=== PATIENT | female | born 1995 | race African-American/Black ===

== ENCOUNTER 2017-09-03 18:12 | Day surgery (SDC) | payer OTHER ==
[2017-09-03 18:48] VITALS: BP 121/70; TEMP 98.1; BMI 20.1
--- NOTE | 2017-09-03 19:36 | PDOC.LDHP ---
Labor and Delivery H&P Chief complaint: abdominal pain HPI: This is a 22 y/o @ 24.1 WGA by LMP c/w 17.3 wk sono who presents complaining of abdominal pain that has been going on for the past two days. She describes it as a cramping type abdominal pain that is worse when she is up moving around at work. The patient also describes less movement over the past two days as well. She denies any fevers, chills, loss of fluid, vaginal discharge, vaginal bleeding, dysuria, but does reports increased urinary frequency. Current gestational age (weeks): 24 (1 day) Due date: 12/23/17 Dating criteria: last menstrual period Grav: 4 Para: 1 (1021) OB History Details: two first trimester SAB, 1 term Current complications: none, other (Poor pre-marcelina care due to issues with her insurance) Abnormal US findings: No (has not gotten anatomy scan) Current medications: pre- vitamins Previous surgical history: dilation and curettage Social history: none - Physical Exam Vital signs reviewed and normal: yes General: NAD Heart: RRR Lungs: CTAB Abdomen: gravid Extremeties: no edema FHT: category 1, variability present Ball contractions every: none - OB Labs Blood type: O RH: negative Antibody Screen: negative HIV: negative RPR: negative HEPSAg: negative Rubella: immune - Assessment 22 y/o @ 24.1 WGA presents for cramping abdominal pain. - Plan -: Will rule out infectious causes of the cramping pain -Urinalysis -VP3 (patient has had trich in past) -GC/CT (patient had chlamydia in her past and has not been tested in this ) -Encourage PO hydration -NST -Anatomy US due to poor care and with patient being Rh negative <Leisa Gamez - Last Filed: 09/03/17 20:14> <Antonio Stokes - Last Filed: 09/03/17 20:29> Allergies/Adverse Reactions: Allergies Allergy/AdvReac Type Severity Reaction Status Date / Time No Known Allergies Allergy Verified 01/12/17 10:11 Attending Addendum - Attending Addendum Date/Time: 09/03/172028 I personally evaluated the patient and discussed the management with Dr. Gamez. I agree with the History, Examination, Assessment and Plan documented above with any addition or exceptions noted below. Cat 1 strip. Await UA. VP3 as not done yet in . Discharge if workup reassuring. <Antonio Stokes - Last Filed: 09/03/17 20:29>
[2017-09-03 20:47] LABS: Bilirubin Negative (Negative); Blood, Urine Negative (Negative); Clarity CLEAR (Clear); Glucose, Urine (Dipstick) Negative (Negative); Leukocyte Moderate (Negative); Nitrite Negative (Negative); Protein, Urine (Dipstick) Negative (Neg-Trace); Specific Gravity, Urine 1.011 (1.002-1.036); Urobilinogen 0.2 mg/dL (0.2-1.0)
[2017-09-03 20:49] LABS: Bacteria/HPF 1+ HPF (None Seen); Hyaline Casts/LPF 0-3 HYALINE CAST LPF (0-3 Hyaline); Pathc Cast-AUWi Flag 0.13 (0-2.49); RBC/HPF 0-3 HPF (0-3); Squamous Epithelial 0-3 HPF (0-3)
--- NOTE | 2017-09-03 21:16 | ULT ---
OB ULTRASOUND: History: Abdominal cramping, limited care. FINDINGS: There is a single live intrauterine gestation seen with measurements corresponding to an estimated ge stational age of 23 weeks 5 days with an CARLITOS of 7-10-18. Estimated weight is 544 grams (1 lbs. 3 oz). measurements are as follows: BPD 5.19 cm 21 weeks 5 days HC 20.57 cm 22 weeks 5 days AC 17.49 cm 22 weeks 6 days FL 4.08 cm 23 weeks 2 days The heart rate measures 136 beats/minute. The placenta is posterior without evidence of placent a previa. Amniotic fluid is adequate. A three vessel cord, cord insertion, kidneys, bladder, st omach, four chamber heart, stomach, spine, lips/nose were visualized. No definite anomalies are seen. The cervical length measures 4.12 cm. IMPRESSION: Single live IUP of 22 weeks 5 days estimated gestational age and CARLITOS at 7-10-18. POS: [facility]
[2017-09-04] MEDS ORDERED: FLU VACC QS2017-18 36 mo. & older 0.5 ML SYRINGE IM ONE (09:00)
== END 2017-09-03 22:00 | disposition home or self-care (01) ==
LOC: L&D/OP 18:12
PROVIDERS: ATTEND Family Medicine
DX: O99.89 Other specified diseases and conditions complicating pregnancy, childbirth and the puerperium (principal); R10.9 Unspecified abdominal pain; O09.32 Supervision of pregnancy with insufficient antenatal care, second trimester; Z3A.24 24 weeks gestation of pregnancy; Z79.899 Other long term (current) drug therapy; Z98.890 Other specified postprocedural states
CPT/HCPCS: 76805; 81001; 87086; 87480; 87491; 87510; 87591; 87660

== ENCOUNTER 2018-10-31 13:30 | Emergency (ER) | payer MEDICAID | END 2018-10-31 15:03 | disposition home or self-care (01) | LOC: ERS 13:30 | DX: J06.9 Acute upper respiratory infection, unspecified (principal); E05.90 Thyrotoxicosis, unspecified without thyrotoxic crisis or storm; F31.9 Bipolar disorder, unspecified; F90.9 Attention-deficit hyperactivity disorder, unspecified type; F17.210 Nicotine dependence, cigarettes, uncomplicated; Z79.899 Other long term (current) drug therapy | CPT/HCPCS: 99283 ==

== ENCOUNTER 2019-06-30 10:44 | Emergency (ER) | payer OTHER, SELFPAY ==
[2019-06-30 11:42] LABS: Bilirubin Negative (Negative); Blood, Urine 3+ (Negative); Clarity Extra Turbid (Clear); Glucose, Urine (Dipstick) Normal (Negative); Leukocyte 250 Leu/uL (Negative); Nitrite 2+ (Negative); Protein, Urine (Dipstick) 50 mg/dL (Neg-Trace); RBC/HPF Greater than 50 HPF (0-3); Urobilinogen Normal mg/dL (Less than 2)
[2019-06-30 11:49] LABS: Bacteria/HPF 4+ HPF (None Seen); WBC/HPF 21-50 HPF (0-3)
[2019-06-30 11:50] LABS: Sperm/HPF 1+ HPF (None Seen)
== END 2019-06-30 12:55 | disposition home or self-care (01) ==
LOC: ERS 10:44
DX: O20.0 Threatened abortion (principal); O23.41 Unspecified infection of urinary tract in pregnancy, first trimester; O99.341 Other mental disorders complicating pregnancy, first trimester; F41.9 Anxiety disorder, unspecified; F31.9 Bipolar disorder, unspecified; F90.9 Attention-deficit hyperactivity disorder, unspecified type; O99.281 Endocrine, nutritional and metabolic diseases complicating pregnancy, first trimester; E05.90 Thyrotoxicosis, unspecified without thyrotoxic crisis or storm; O99.331 Smoking (tobacco) complicating pregnancy, first trimester; F17.210 Nicotine dependence, cigarettes, uncomplicated; Z3A.13 13 weeks gestation of pregnancy
CPT/HCPCS: 81003; 81015; 87077; 87086; 87186; 90384; 96372; 99284

== ENCOUNTER 2019-07-23 17:59 | Emergency (ER) | payer OTHER ==
[2019-07-23 19:25] LABS: #Lymphocytes 1.7 thou/uL (1.20-3.40); #Monocytes 0.5 thou/uL (0.11-0.59); %Basophils 0.4 % (0.0-1.0); %Eosinophils 0.1 % (0.0-10.0); %Lymphocytes 13.7 % (21.0-51.0); %Monocytes 3.8 % (0.0-10.0); %Neutrophils 82.1 % (42.0-75.0); Hemoglobin 13.2 g/dL (12.0-16.0); Mean Corpuscular HGB CONC 33.5 g/dL (32.0-36.0); Mean Corpuscular Hemoglobin 28.4 pg (27.0-31.0); Mean Corpuscular Volume 84.7 fL (78.0-98.0); Mean Platelet Volume 7.4 fL (7.4-10.4); Platelet Count 298 thou/uL (130-400); RBC Distribution Width 14.8 % (11.5-14.5); Red Blood Cell (RBC) Count 4.66 mill/uL (4.20-5.40); White Blood Cell (WBC) Count 12.1 thou/uL (4.8-10.8)
[2019-07-23 19:40] LABS: Bilirubin Negative (Negative); Blood, Urine Negative (Negative); Clarity Turbid (Clear); Glucose, Urine (Dipstick) Normal (Negative); Leukocyte 500 Leu/uL (Negative); Nitrite Negative (Negative); Protein, Urine (Dipstick) 10 mg/dL (Neg-Trace); Urobilinogen Normal mg/dL (Less than 2); WBC/HPF Greater than 50 HPF (0-3)
[2019-07-23 19:45] LABS: Bacteria/HPF Rare-Few HPF (None Seen)
[2019-07-23 19:48] LABS: ALT (SGPT) 11 U/L (8-55); AST (SGOT) 15 U/L (5-34); Albumin 3.9 g/dL (3.5-5.0); Alkaline Phosphatase 75 U/L (40-110); Anion Gap 13 mmol/L (10-20); BUN (Urea Nitrogen) 10 mg/dL (7.0-18.7); Bilirubin, Total 0.4 mg/dL (0.2-1.2); Calc. Creatinine Clearance 0 mL/min (70-130); Carbon Dioxide 23 mmol/L (22-29); Chloride 102 mmol/L (98-107); Estimated GFR-MDRD Greater than 90; Globulin 3.6 g/dL (2.4-3.5); Glucose 75 mg/dL (70-105); Lipase 15 U/L (8-78); Protein, Total 7.5 g/dL (6.0-8.3); Sodium 134 mmol/L (136-145)
== END 2019-07-23 20:43 ==
LOC: EEVIPCON 17:59 → ERS 17:59
DX: O99.612 Diseases of the digestive system complicating pregnancy, second trimester (principal); K92.0 Hematemesis; O99.282 Endocrine, nutritional and metabolic diseases complicating pregnancy, second trimester; O99.342 Other mental disorders complicating pregnancy, second trimester; F31.9 Bipolar disorder, unspecified; F90.9 Attention-deficit hyperactivity disorder, unspecified type; O99.332 Smoking (tobacco) complicating pregnancy, second trimester; F17.210 Nicotine dependence, cigarettes, uncomplicated; Z3A.19 19 weeks gestation of pregnancy
CPT/HCPCS: 36415; 80053; 81003; 81015; 83690; 85025

== ENCOUNTER 2019-11-12 13:10 | Emergency (ER) | payer OTHER | END 2019-11-12 14:09 | disposition home or self-care (01) | LOC: ERS 13:10 | DX: R05 Cough (principal); E03.9 Hypothyroidism, unspecified; F31.9 Bipolar disorder, unspecified; F90.9 Attention-deficit hyperactivity disorder, unspecified type; Z79.899 Other long term (current) drug therapy | CPT/HCPCS: 99283 ==

== ENCOUNTER → 2019-11-13 | Day surgery (SDC) | payer OTHER ==
[~2019-11-13] MED LIST: Acetaminophen 500 MG TAB PO SCH; hydrALAZINE 20 MG/ML VIAL SLOW IVP PRN
--- NOTE | 2019-11-13 11:58 | PDOC.FPROB ---
FMR OB H&P: HPI - History of Present Illness Chief Complaint: elevated BP at [facility] Indentification: 24yo at 35.1 by 17w US History of Present Illness: Pt presents from [facility] after SBP of 141 and 146 15 min apart. She also reports intermittent BELLE and new onset productive cough x3 days. She has positive ill contact with daughter having similar sx. She otherwise denies vision changes, abd pain, VD, VB, LOF, poor movement, n/v/d/c, rhinorrhea, sneezing, fever. She has no hx of PIH in prior pregnancies. Primary Care Physician: [facility]- Lou Junior MD FMR OB H&P: Current - Care : 3 Para: 2000 Gestational age: 35.1w Due date: 12/17/19 Dating Criteria: 17w US - OB Labs Blood type: O RH: negative Antibody Screen: positive (AntiD Ab) HIV: negative RPR: negative HepBsAg: negative Rubella: immune Urine drug screen: negative Gonorrhea: negative Chlamydia: negative Pap Smear: ASCUS, HPV16+ 1 hour gtt: 81 GBS: unknown H&H: 12.0/35.5- 1T, 9.3/29.0- 3T (09/2019) Additional labs: TSH: 0.443, TPO Ab high at 151, Thyroglobulin wnl UDS neg - Anatomy Survey Anatomy survey: Normal anatomic survey, [place] 13% - Additional Ultrasound Additional: Follows with Dr. Roney Gregorio MD, for MFM, US on 10/27: BPP 8/8, cephalic presentation, YARIEL 14 FMR OB H&P: History - Past Medical History PMH: Hypothyroidism Tobacco Abuse in Cannabis Use in - OB History OB History: 1st - Term 2nd - Term IUFD, - FRAMING AND HANGING History FRAMING AND HANGING History: ASCUS, HPV16+ papsmear in , needs colpo 6wk PP - Social History Social History: Reports daily tobacco use up until 1 month ago, still has an occasional cigarette, denies alcohol use and drug use. FMR OB H&P: Medications - Current Home Medications: Medication Instructions Recorded Confirmed Type Vitamin 1 tablet PO DAILY #30 tablet 01/15/17 09/03/17 Rx Ferrous Sulfate/Vit C/Folic AC 1 tablet PO BID #60 tablet.er 11/13/19 Rx [Folitab 500 Caplet] Allergies/Adverse Reactions: Allergies Allergy/AdvReac Type Severity Reaction Status Date / Time No Known Allergies Allergy Verified 11/13/19 13:23 FMR OB H&P: ROS - Review of Systems General: denies: fever/chills, weight/appetite/sleep changes, night sweats, fatigue, recent trauma Eyes: denies: eye pain, vision changes, double vision, scotomas, floaters ENT: denies: nasal congestion, rhinorrhea, frequent nose bleed, sinus pain/ pressure, ear pain, sore throat Cardiovascular: denies: chest pain, palpitation, edema, orthopnea Respiratory: reports: cough, congestion, shortness of breath. denies: exercise intolerance Gastrointestinal: denies: abdominal pain, indigestion, bloating, cramping, nausea, vomiting, diarrhea, constipation, bright red blood, dark black tarry stools Genitourinary (Female): denies: incontinence, dysuria, hematuria, polyuria, hesitancy, vaginal discharge, vaginal bleeding, vaginal pressure Musculoskeletal: denies: pain, stiffness, tenderness Neurologic: denies: syncope, weakness Integumentary: denies: itching, rash FMR OB H&P: Vital Signs - Maternal Vital signs: BP 133/88 - Heart Tones Baseline: 130 Variability: moderate Acceleration: present Deceleration: absent Category: category 1 [place] contractions every: none FMR OB H&P: Physical Exam - Physical Exam General: NAD, awake, alert and oriented HEENT: normocephalic and atraumatic, EOMI, MMM, oropharynx clear Neck: no LAD Heart: RRR, normal S1/S2, no murmurs/rubs/gallops, pulses present General: CTAB, no respiratory distress, good air movement Deviation from normal: wasn't able to take big deep breath Abdomen: soft, gravid Musculoskeletal: pulses present Neurological: no focal deficit Skin: no rash FMR OB H&P: A/P - Problem List (1) Elevated blood pressure complicating , antepartum Current Visit: No Status: Acute Code(s): O13.9 - GESTATIONAL HTN W/O SIGNIFICANT PROTEINURIA, UNSP TRIMESTER Comment: remains normotensive. monitor post . (2) Third trimester at less than 36 weeks Current Visit: No Status: Acute Code(s): Z33.1 - STATE, INCIDENTAL Comment: 34.6wks by LMP c/w 11 wk sono- cont PNV & plan of care. Disposition: Pt is a 24 yo at 35.1 wks, dated by 17 wk sono, who presents from [facility] with elevated BP's: # Elevated BP's - CBC and CMP reassuring, pending Protein:Creatinine ratio - monitor blood pressures for 4 hours - will need BP cuff for home if discharged # Term IUP - monitor FHT's - GBS swab today, 11/13/19, at [facility] # Anemia of -3T Hgb 9, today 8.2 -start Fe and Vit C supplement # Hypothyroidism -TSH wnl initially, repeat pending # Hx of Term IUFD -plan for IOL at 37-38wk per MFM # Hx of Marijuana Use -UDS at delivery Dispo: monitor for 4 hours, Pre-E/PIH work up pending Discussion: Date/Time: 11/13/19 4035 This H&P was discussed with Dr. Liu and Dr. Monroe who agree with the above documentation and plan. Addendum - Attending - Attending Attestation Date/Time: 11/14/19 0636 I personally evaluated the patient and discussed the management with Dr. Hutchins I agree with the History, Examination, Assessment and Plan documented above with any addition or exceptions noted below. work up was negative. pt stable for discharge. counseled to take iron/vit c for anemia of . Covid 19 testing still pending. PT discharged with strict isolation precautions.
[2019-11-13 13:27] LABS: #Eosinphils 0.1 thou/uL (0.0-0.7); #Lymphocytes 1.5 thou/uL (1.20-3.40); #Monocytes 0.7 thou/uL (0.11-0.59); #Neutrophils 9.3 thou/uL (1.40-6.50); %Basophils 0.1 % (0.0-1.0); %Eosinophils 0.7 % (0.0-10.0); %Lymphocytes 13.1 % (21.0-51.0); %Monocytes 6.1 % (0.0-10.0); Hemoglobin 8.3 g/dL (12.0-16.0); Mean Corpuscular HGB CONC 32.9 g/dL (32.0-36.0); Mean Corpuscular Hemoglobin 26.3 pg (27.0-31.0); Mean Platelet Volume 7.3 fL (7.4-10.4); Platelet Count 208 thou/uL (130-400); RBC Distribution Width 13.5 % (11.5-14.5); Red Blood Cell (RBC) Count 3.14 mill/uL (4.20-5.40); White Blood Cell (WBC) Count 11.6 thou/uL (4.8-10.8)
[2019-11-13 13:48] LABS: ALT (SGPT) Less than 7 U/L (8-55); AST (SGOT) 14 U/L (5-34); Albumin 3.1 g/dL (3.5-5.0); Alkaline Phosphatase 116 U/L (40-110); Anion Gap 12 mmol/L (10-20); BUN (Urea Nitrogen) 5 mg/dL (7.0-18.7); Calc. Creatinine Clearance 0 mL/min (70-130); Calcium 8.1 mg/dL (7.8-10.44); Carbon Dioxide 21 mmol/L (22-29); Chloride 108 mmol/L (98-107); Estimated GFR-MDRD Greater than 90; Glucose 74 mg/dL (70-105); Potassium 3.6 mmol/L (3.5-5.1); Protein, Total 6.1 g/dL (6.0-8.3); Sodium 137 mmol/L (136-145)
[2019-11-13 14:03] LABS: Bilirubin, Total 0.2 mg/dL (0.2-1.2)
[2019-11-13 14:15] VITALS: TEMP 98.2
[2019-11-13 16:28] LABS: Creatinine, Urine 55.25 mg/dL (47-110); Protein, Urine Random Quant Less than 10 mg/dL (1-14)
--- NOTE | 2019-11-14 07:32 | PDOC.BPN ---
- Brief Progress Note Pt observed for 4h. 1 elevated BP 133/91, otherwise wnl. Labwork notable for anemia as stated in original H&P. Urine protien/Cr ratio wnl. D/c home with isolation precautions because of pending COVID lab with f/u at [facility] either Monday or Monday. Script written for BP cuff so she can perform ambulatory monitoring. mIOL per M scheduled for 11/26 for prior term IUFD. Patient agreeable to plan.
[2019-11-14 11:44] LABS: SARS-CoV-2 MS2 Positive; SARS-CoV-2 N Gene Negative; SARS-CoV-2 S Gene Negative; SARS-CoV-2 orf1ab Negative
== END | disposition home or self-care (01) ==
LOC: L&D/OP 11:51
PROVIDERS: ATTEND Obstetrics & Gynecology
DX: O13.3 Gestational [pregnancy-induced] hypertension without significant proteinuria, third trimester (principal); O99.013 Anemia complicating pregnancy, third trimester; D64.9 Anemia, unspecified; O99.283 Endocrine, nutritional and metabolic diseases complicating pregnancy, third trimester; E03.9 Hypothyroidism, unspecified; O99.333 Smoking (tobacco) complicating pregnancy, third trimester; F17.210 Nicotine dependence, cigarettes, uncomplicated; O99.89 Other specified diseases and conditions complicating pregnancy, childbirth and the puerperium; R51 Headache; R05 Cough; Z20.828 Contact with and (suspected) exposure to other viral communicable diseases; Z3A.35 35 weeks gestation of pregnancy
CPT/HCPCS: 36415; 80053; 82570; 84156; 85025; 87635; U0003

== ENCOUNTER 2020-05-10 14:09 | Emergency (ER) | payer OTHER ==
[2020-05-10 21:32] LABS: SARS-CoV-2 MS2 Positive; SARS-CoV-2 N Gene Positive; SARS-CoV-2 S Gene Positive; SARS-CoV-2 by NAA DETECTED (NotDetected); SARS-CoV-2 orf1ab Positive
== END 2020-05-10 14:30 | disposition home or self-care (01) ==
LOC: ERS 14:09
DX: U07.1 COVID-19 (principal); E03.9 Hypothyroidism, unspecified; F90.9 Attention-deficit hyperactivity disorder, unspecified type; F31.9 Bipolar disorder, unspecified
CPT/HCPCS: 87635; 99283; U0003

== ENCOUNTER 2021-02-23 | Emergency (ER) | payer OTHER | END 2021-02-23 23:00 | disposition home or self-care (01) ==